=== PATIENT | male | born 1975 | race Caucasian/White ===

== ENCOUNTER 2019-03-15 18:35 | Emergency (ER) | payer OTHER ==
[~2019-03-15] VITALS: Ht 177.8 cm; Wt 116.1 kg
[~2019-03-15 18:35] MED LIST: MOTRIN800 MG
[2019-03-15 18:41] VITALS: Ht 177.8 cm; Wt 116.1 kg
[2019-03-15 19:50] LABS: BASOPHIL % 0.9 % (0-2); RED CELL DISTRIBUTION WIDTH 14.4 % (11.5-14.5)
[2019-03-15 19:57] LABS: PLATELET COUNT 412 x10^3mcL (130-400)
[2019-03-15 20:00] LABS: microscopic required? YES; urine erythrocyte TRACE (NEGATIVE)
[2019-03-15 20:05] LABS: CALCIUM 8.6 mg/dL (8.5-10.1); CARBON DIOXIDE 23.9 mmol/L (21-32); CHLORIDE SERUM 105 mmol/L (98-107); GFR1 > 60 mL/min; GLUCOSE SERUM 111 mg/dL (74-106); POTASSIUM SERUM 4.1 mmol/L (3.5-5.1); SODIUM SERUM 143 mmol/L (136-145)
[2019-03-15 20:08] LABS: ALKALINE PHOSPHATASE 71 U/L (46-116); ALT/SGPT 80 U/L (16-63); AST/SGOT 28 U/L (15-37); BILIRUBIN TOTAL 0.4 mg/dL (0.20-1.00); CHOLESTEROL 190 mg/dL (<200); CHOLESTEROL/HDL RATIO 5.4; HDL CHOLESTEROL 35 mg/dL (40-60); LIPASE 300 IU/L (73-393); TOTAL PROTEIN, SERUM 7.3 g/dL (6.4-8.2); TRIGLYCERIDES 128 mg/dL (<150)
[2019-03-15 20:22] LABS: AMPHETAMINE QUAL UR NONE DETECTED (See below)
[2019-03-15 20:41] LABS: T3 TOTAL 1.37 ng/mL
[2019-03-15 21:40] VITALS: BP 115/68
[2019-03-15 21:58] LABS: FREE T4 1.08 ng/dL (0.76-1.46); FREE THYROXINE INDEX 2.9 ug/dL (1.4-4.5); T4(THYROXINE) 8.1 ug/dL (4.7-13.3)
== END 2019-03-15 21:40 | disposition home or self-care (01) ==
LOC: ED 18:35
PROVIDERS: Specialist
DX: R42 Dizziness and giddiness (principal); S23.3XXA Sprain of ligaments of thoracic spine, initial encounter; F41.9 Anxiety disorder, unspecified; I10 Essential (primary) hypertension; R07.89 Other chest pain; Z98.890 Other specified postprocedural states; W11.XXXA Fall on and from ladder, initial encounter; Y93.89 Activity, other specified; Y92.89 Other specified places as the place of occurrence of the external cause; Y99.8 Other external cause status
CPT/HCPCS: 72072; 83880; 84439; 99406; J1885; J7030